=== PATIENT | male | born 2000 | race African-American/Black ===

== ENCOUNTER 2023-10-16 21:57 | Emergency (ER) | payer MEDICAID, OTHER ==
[2023-10-16] MEDS ORDERED: fentaNYL 50 mcg/mL 1 mL Vial ONE (22:11)
== END 2023-10-16 23:27 | disposition home or self-care (01) ==
LOC: ERS 21:57
DX: S52.022A Displaced fracture of olecranon process without intraarticular extension of left ulna, initial encounter for closed fracture (principal); W18.30XA Fall on same level, unspecified, initial encounter
CPT/HCPCS: 24670; 94760; 96374; J3010